=== PATIENT | female | born 2005 | race Caucasian/White ===

== ENCOUNTER 2025-04-13 14:54 | Emergency (ER) | payer OTHER ==
[~2025-04-13] VITALS: Ht 170.2 cm; Wt 84.2 kg
--- NOTE | 2025-04-13 15:52 | Physician Documentation ---
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 Patient states she does have history of two prior concussions and states she has significant headache and we concussive like symptoms similar to previous episodes. Patient admits to numbness and tingling of her hands that has now resolved states her hand still feel a little shaky. Patient denies any loss of consciousness or runny nose or difficulty walking or speaking. Patient has no other concern or complaint at this time. Tetanus within 5 years?: No Medication Reconciliation Allergies: Coded Allergies: No Known Allergies (Unverified , 04/13/25) Review of Systems Constitutional: Denies: chills, fever, weakness Eyes: Denies: pain, blurred vision ENT: Denies: ear pain, nose pain, throat pain, mouth pain Respiratory: Denies: cough, shortness of breath Cardiovascular: Denies: chest pain, palpitations Gastrointestinal: Denies: abdominal pain, nausea, vomiting Genitourinary: Denies: burning, dysuria Female Genitalia: Denies: vaginal discharge, pelvic pain Neurological: Denies: headache, dizziness Musculoskeletal: Denies: pain, swelling Integumentary: Denies: rash, lesions Allergic/Immunologic: Denies: hives, itching Hematologic/Lymphatic: Denies: no symptoms reported Psychiatric: Denies: depression, anxiety Physical Exam Vital Signs: Temperature: 98.0, Source: Temporal, Heart Rate: 77, Respiratory Rate: 16, BP: 113/69, Pulse Oximetry: 98, Weight: 84.200 Oxygen Flow Rate: 0 Physical Exam General: Awake and Alert, no acute distress. HEENT: Patient on exam does have mild tenderness to palpation of the nape of the neck and occiput without any significant or severe swelling. Conjunctiva pink, Sclera clear, Mucus Membranes moist. Neck: Supple without masses and tenderness. Resp: Unlabored. Lungs clear to auscultation bilaterally. Heart: Regular Rate and rhythm, normal S1 and S2 without murmur, rub or gallop. Musculoskeletal: Patient on exam does have mild decreased range of motion of the cervical spine in all planes of motion. Patient is neurovascularly intact distally of the bilateral upper extremities, motor function and strength intact distally. Abdomen: Soft and non tender no organomegaly Extremities: No cyanosis,clubbing or edema. Skin: Warm and Dry. 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 Patient states she does have history of two prior concussions and states she has significant headache and we concussive like symptoms similar to previous episodes. Patient admits to numbness and tingling of her hands that has now resolved states her hand still feel a little shaky. Patient denies any loss of consciousness or runny nose or difficulty walking or speaking. Patient has no other concern or complaint at this time. Patient likely does have mild concussion and will need to rest and take Tylenol ibuprofen as needed for symptomatic relief. Patient may return to work on the 16 of April tender to light duty but will not be able to be in contact with any client's where she may have a repeat head injury. She will need to be cleared before returning to full duty. Patient will return to ED with any worsening, concerning or changing symptoms. Differential Dx:Considerations: Include: Closed head injury, Cervical spine injury, Skull facture, Contusion Departure Disposition: HOME / SELF CARE / HOMELESS Impression: Primary Impression: Concussion Qualified Codes: S06.0X0A - Concussion without loss of consciousness, initial encounter Condition: Stable Discharge Instructions: Post Concussion Syndrome,Adult Additional Instructions: Patient likely does have mild concussion and will need to rest and take Tylenol ibuprofen as needed for symptomatic relief. Patient may return to work on the 16 of April tender to light duty but will not be able to be in contact with any client's where she may have a repeat head injury. She will need to be cleared before returning to full duty. Patient will return to ED with any worsening, concerning or changing symptoms. Referrals: NO PRIMARY CARE PROVIDER (PCP) Signature Scribe Signature: No scribe Attestation: No scribe [facility] Apr 13, 2025 15:52
[2025-04-13 16:29] VITALS: BP 124/78; PULSE 78; RESP 16; TEMP 98.4; O2SAT 98
== END 2025-04-13 16:33 | disposition home or self-care (01) ==
LOC: ER 14:55
DX: S06.0X0A Concussion without loss of consciousness, initial encounter (principal); X58.XXXA Exposure to other specified factors, initial encounter; Y93.89 Activity, other specified; Y92.89 Other specified places as the place of occurrence of the external cause; Y99.8 Other external cause status
CPT/HCPCS: 99282

== ENCOUNTER 2025-04-16 14:14 | Emergency (ER) | payer OTHER ==
[~2025-04-16] VITALS: Ht 170.2 cm; Wt 81.4 kg
[2025-04-16 14:40] VITALS: BP 119/76; PULSE 74; RESP 16; TEMP 96.7; O2SAT 98
--- NOTE | 2025-04-16 15:04 | Physician Documentation ---
History of Present Illness ~ Chief Complaint: Medical Clearance Stated Complaint: RECHECK Time Seen by MD: 14:48 OK to notify your PCP?: Yes HPI This is a 19-year-old female who presents requesting a work note after sustaining a concussion on Sunday, patient reports that she is still having nausea and brain fog and does not feel she is ready to return to work. Patient reports no vomiting or confusion. Tetanus within 5 years?: No Medication Reconciliation Allergies: Coded Allergies: No Known Allergies (Unverified , 04/16/25) Past Medical History Past Medical History: No Pertinent History Review of Systems ROS As stated above in the HPI, otherwise all systems are reviewed and negative. Physical Exam Vital Signs: Temperature: 96.7, Source: Temporal, Heart Rate: 74, Respiratory Rate: 16, BP: 119/76, Pulse Oximetry: 98, Weight: 81.400 Oxygen Flow Rate: 0 Physical Exam VITALS: Reviewed and as above. GENERAL: Alert, nontoxic appearing, no apparent distress. HEENT: PERRLA, EOMI, no facial ecchymosis RESPIRATORY: No increased work of breathing, no respiratory distress, speaking in full clear sentences NEURO: GCS 15, no focal motor deficits, no focal sensory deficits, walking with steady unassisted gait Progress Results/Orders Results/Orders Vital Signs 04/16/25 14:40 Temp 96.7 Pulse 74 Resp 16 B/P (MAP) 119/76 Pulse Ox 98 O2 Flow Rate 0 Medical Decision Making Additional information obtaine: old records Findings This is a 19-year-old female who presents back to the emergency department for re-evaluation after sustaining a concussion on Sunday, review of records indicate patient was instructed to return today for re-evaluation for return to full duty, as patient is still reporting symptoms consistent with postconcussion seven drawn she will not be cleared back to work, patient will be taken off work for the next three days with re-evaluation on SundayApril 20. It is reassuring patient reports no persistent vomiting, confusion and physical exam was benign including no focal neuro deficits. Patient provided home care instructions, return to care precautions, and follow up instructions which she verbalized understanding of. Differential Dx:Considerations: Include: Closed head injury, Cervical spine injury, Skull facture, Fracture, Abrasion, Contusion, Intoxication-alcohol, Intoxication-other drug, Personality disorder Departure Time of Disposition: 15:08 Disposition: 01 HOME / SELF CARE / HOMELESS Impression: Primary Impression: Concussion Qualified Codes: S06.0X0D - Concussion without loss of consciousness, subsequent encounter Additional Impression: Postconcussion syndrome Discharge Instructions: Concussion, Adult, Returning to Sports and Activities After a Concussion, Adult Additional Instructions: As you are experiencing postconcussion symptoms I do not recommend you return to work, please see the attached home care instructions for postconcussion care. Please return on SundayApril 19 or SundayApril 20 for re-evaluation for return to work. Please follow up with your primary care provider in the next few days. Please return to the emergency department for any new or worsening concerning symptoms. Departure Forms: Excuse form Work or School Excused From: Work Excuse beginning now through the following date: Apr 19, 2025 May Return but still avoid physical Activity from now until: Apr 20, 2025 Referrals: NO PRIMARY CARE PROVIDER (PCP) Education Educated: Patient Educated regarding: diagnosis, treatment, prognosis, need for follow up Signature Scribe Signature: No scribe Attestation: The note accurately reflects work and decisions made by me.MYLA Orozco 04/17/25 01:37 Parts of this note were created using [employer] voice recognition software program. While efforts were made to correct any mistakes made by this voice recognition software program, nonsensical phrases may remain in this note. In addition, there may be errors and syntax, grammar, content and spelling. JESSIKA PERALTA Apr 16, 2025 15:04
== END 2025-04-16 15:21 | disposition home or self-care (01) ==
LOC: ER 14:15
DX: S06.0X0D Concussion without loss of consciousness, subsequent encounter (principal); X58.XXXD Exposure to other specified factors, subsequent encounter
CPT/HCPCS: 99282

== ENCOUNTER 2025-04-20 18:27 | Emergency (ER) | payer OTHER ==
[~2025-04-20] VITALS: Ht 170.2 cm; Wt 82.3 kg
--- NOTE | 2025-04-20 19:53 | Physician Documentation ---
History of Present Illness ~ Chief Complaint: Medical Clearance Stated Complaint: MED CLEARANCE Time Seen by MD: 19:04 OK to notify your PCP?: Yes HPI 19-year-old female who presents to the emergency department seeking and released back to work note. Seen twice in last 10 days regarding a concussion that was a work injury. Has not been able to follow up with the worker's comp doctor or Neurology as requested. She continues to have a single post concussive syndrome symptoms. Patient has a steady gait, clear thoughts and conversation. Tetanus within 5 years?: No Medication Reconciliation Allergies: Coded Allergies: No Known Allergies (Unverified , 04/16/25) Past Medical History Past Medical History: No Pertinent History Review of Systems All Other Systems at this time: Reviewed and Negative Neurological: Reports: headache Physical Exam Vital Signs: RN Vital Signs have been reviewed: Yes, Temperature: 97.7, Heart Rate: 93, Respiratory Rate: 16, BP: 107/63, Pulse Oximetry: 100, Weight: 82.270 General Appearance: alert, WD/WN, no apparent distress Head: no evidence of injury Pupils/EOM/Fundus: PERRLA Cardiovascular: normal peripheral pulses Skin: warm/dry Neurologic: oriented x4, thread twister II-XII nml as tested Motor / Sensory: no motor deficit, no sensory deficit Cerebellar Function: normal Affect: appropriate Progress Results/Orders Results/Orders Vital Signs 04/20/25 04/20/25 18:57 20:17 Temp 97.7 98.6 Pulse 93 90 Resp 16 18 B/P (MAP) 107/63 111/64 Pulse Ox 100 99 Medical Decision Making Additional information obtaine: old records Findings Granted the patient here released back to work. She has been released to full duty and advised to follow up with the worker's comp physician and seek neurology follow up. Safely discharged in the emergency department grossly neurologically intact without focal neuro deficits. Differential Dx:Considerations: Include: Closed head injury, Contusion, Other (Postconcussive syndrome) Departure Disposition: 01 HOME / SELF CARE / HOMELESS Impression: Primary Impression: Postconcussion syndrome Condition: Stable Discharge Instructions: Concussion, Adult, [id number] Additional Instructions: Your are cleared to return to work Nov 4 without restrictions. Please follow up with your Worker's injury clinic to be referred to Neurology for evaluation and consideration of additional management for postconcussive syndrome. Referrals: NO PRIMARY CARE PROVIDER (PCP) Education Educated: Patient Educated regarding: diagnosis, treatment, prognosis, need for follow up Signature Scribe Signature: . Attestation: . OANH STUART PAC Apr 20, 2025 19:53
[2025-04-20 20:17] VITALS: BP 111/64; PULSE 90; RESP 18; TEMP 98.6; O2SAT 99
== END 2025-04-20 20:19 | disposition home or self-care (01) ==
LOC: ER 18:27
DX: S06.0X0A Concussion without loss of consciousness, initial encounter (principal); X58.XXXA Exposure to other specified factors, initial encounter; Y93.89 Activity, other specified; Y92.89 Other specified places as the place of occurrence of the external cause; Y99.8 Other external cause status
CPT/HCPCS: 99282